=== PATIENT | male | born 2000 | race Caucasian/White ===

== ENCOUNTER 2022-01-15 23:03 | Emergency (ER) | payer OTHER ==
[~2022-01-15] VITALS: Ht 193 cm; Wt 97.7 kg
[~2022-01-15 23:03] MED LIST: IBUPROFEN400 MG PO
[2022-01-15] MEDS ORDERED: DOXYCYCLINE MO100 M1 PO (23:19)
[2022-01-16] MEDS ORDERED: PROTONIX40 MG PO (00:24)
== END 2022-01-16 00:30 | disposition home or self-care (01) ==
LOC: ED 23:03
DX: K29.00 Acute gastritis without bleeding (principal); Z79.899 Other long term (current) drug therapy
CPT/HCPCS: 99283